=== PATIENT | female | born 1970 | race Two or more races ===

== ENCOUNTER 2019-01-23 01:22 | Emergency (ER) | payer MEDICAID ==
[~2019-01-23] VITALS: Ht 274.3 cm; Wt 81.6 kg
[2019-01-23] MEDS ORDERED: IBUPROFEN 600 MG TAB PO ONE (01:45)
[2019-01-23] MEDS ORDERED: ACETAMINOPHEN/CODEINE#3 (300/30mg) TAB PO ONE (03:30)
[2019-01-23 03:42] VITALS: BP 122/51
== END 2019-01-23 03:50 | disposition home or self-care (01) ==
LOC: EDBD 01:22 → ER 01:22 → EDSEX 01:22 → ER 03:50
DX: S92.912A Unspecified fracture of left toe(s), initial encounter for closed fracture (principal); W18.39XA Other fall on same level, initial encounter; Y93.89 Activity, other specified; Y92.89 Other specified places as the place of occurrence of the external cause; Y99.8 Other external cause status
CPT/HCPCS: 73630